=== PATIENT | female | born 1990 | race Caucasian/White ===

== ENCOUNTER → 2019-02-21 | Outpatient (CLI) | payer BC ==
--- NOTE | 2019-02-21 13:48 | Diagnostic Imaging Report ---
INDICATION: survey. TECHNIQUE: Multiple real-time grayscale images were obtained over the gravid uterus. COMPARISON: None. FINDINGS: There is a single live fetus in a cephalic presentation. heart rate was recorded at 150 beats per minute. Placenta is posterior. The amniotic fluid volume is normal. The placental tip is approximately 2.3 cm from the internal cervical os. Cervical length is 5.0 cm. survey demonstrates kidneys, bladder, and stomach to be unremarkable. The brain is unremarkable. There is a four-chamber heart. spine is unremarkable. There is a three-vessel cord. Cord insertion was not well visualized on today's study. Maternal adnexa are unremarkable. Biometrical measurements are as follows: Biparietal 4.68 cm, age 20 weeks 2 days. Head circumference 16.44 cm, age 19 weeks 2 days. Abdominal circumference 13.85 cm, age 19 weeks 2 days. Femur length 3.19 cm, age 20 weeks 0 days. Sonographic estimate age: 19 weeks 5 days. Sonographic estimated date of delivery: 07/13/2019. Estimated Weight: 299 gm (+/- 44 gm). LMP percentile: 44%. heart rate: 150 beats per minute. number: 1 of 1. IMPRESSION: Single live IUP at 19 weeks 5 days gestational age. The estimated date of confinement sonographically is 07/13/2019. survey is unremarkable, although the cord insertion was not well visualized on today's study. In addition, note is made that the tip of the placenta is approximately 2.3 cm from the internal cervical os. Dictated by: Dictated on workstation # [id number]
== END ==
LOC: RAD 11:05
PROVIDERS: ATTEND Obstetrics & Gynecology
DX: Z36.89 Encounter for other specified antenatal screening (principal); Z3A.19 19 weeks gestation of pregnancy
CPT/HCPCS: 76805

== ENCOUNTER 2019-07-11 19:00 | Inpatient (IN) | payer BC ==
[~2019-07-11] VITALS: Ht 160 cm; Wt 106.0 kg
[2019-07-11 19:18] VITALS: BP 133/83
[2019-07-11] MEDS ORDERED: LACTATED RINGERS 1,000 ML IV ONE (19:20)
[2019-07-11] MEDS ORDERED: D5 LR IV SOLUTION 1,000 ML IV ONE (19:20)
[2019-07-11] MEDS ORDERED: NS (IVPB) 250 ML ONE (20:04)
[2019-07-11] MEDS ORDERED: MISOPROSTOL 100 MCG (CYTOTEC) TAB ONE (20:05)
[2019-07-11] MEDS ORDERED: TERBUTALINE INJ 1 MG/ML (BRETHINE) AMP SC PRN (20:15)
[2019-07-11] MEDS ORDERED: MISOPROSTOL 100 MCG (CYTOTEC) TAB PO NR (20:15)
[2019-07-11] MEDS ORDERED: NS (IVPB) 250 ML IV ONE (20:15)
[2019-07-11] MEDS ORDERED: AMPICILLIN FOR IV USE 2,000 MG VIAL ONE (20:19)
[2019-07-11] MEDS ORDERED: WATER (STERILE) FOR INJECTION 20 ML ONE (20:19)
[2019-07-11] MEDS ORDERED: AMPICILLIN FOR IV USE 2,000 MG in WATER (STERILE) FOR INJECTION 14.8 ML IV SCH (20:25)
[2019-07-11] MEDS: D5 LR IV SOLUTION 1,000 ML IV SCH (20:32)
[2019-07-11 20:33] VITALS: BP 129/85
[2019-07-11 20:39] LABS: BASOPHILS % (AUTO) 0 % (0-10); EOSINOPHILS # (AUTO) 0.4 10^3/uL (0.0-0.3); EOSINOPHILS % (AUTO) 3 % (0-10); HEMATOCRIT 37 % (35-52); HEMOGLOBIN 12.6 G/DL (11.5-16.0); LYMPHOCYTES # (AUTO) 2.7 X 10^3 (1.0-4.0); LYMPHOCYTES % (AUTO) 24 % (12-44); MEAN CORPUSCULAR HEMOGLOBIN 29 PG (25-34); MEAN CORPUSCULAR HGB CONC 34 G/DL (32-36); MEAN CORPUSCULAR VOLUME 86 FL (80-99); MEAN PLATELET VOLUME 11.8 FL (7.4-10.4); MONOCYTES # (AUTO) 1.2 X 10^3 (0.0-1.0); MONOCYTES % (AUTO) 11 % (0-12); NEUTROPHILS # (AUTO) 6.7 X 10^3 (1.8-7.8); NEUTROPHILS % (AUTO) 61 % (42-75); PLATELET COUNT 214 10^3/uL (130-400)
[2019-07-11 20:42] LABS: BILIRUBIN,URINE NEGATIVE (NEGATIVE); CLARITY,URINE CLEAR; COLOR,URINE YELLOW; GLUCOSE, URINE (UA) NEGATIVE (NEGATIVE); KETONES,URINE NEGATIVE (NEGATIVE); LEUKOCYTE ESTERASE ,URINE NEGATIVE (NEGATIVE); NITRITE,URINE NEGATIVE (NEGATIVE); PH,URINE 6.5 (5-9); PROTEIN,URINE NEGATIVE (NEGATIVE)
[2019-07-11 20:51] LABS: BACTERIA,URINE NEGATIVE /HPF
[2019-07-11] MEDS ORDERED: CATHETER FLUSH 10 ML SYR IV SCH (22:00)
[2019-07-11 22:01] VITALS: BP 128/81
[2019-07-11 23:01] VITALS: BP 127/81
[2019-07-12] VITALS (32 sets, daily range): BP systolic 87–241; BP diastolic 52–146
[2019-07-12] MEDS ORDERED: HYDROmorphone 2 MG/ML VIAL (DILAUDID) ONE (00:21)
[2019-07-12] MEDS: MISOPROSTOL 100 MCG (CYTOTEC) TAB PO SCH ×2 (00:28→03:16)
[2019-07-12] MEDS ORDERED: HYDROmorphone 2 MG/ML VIAL (DILAUDID) IV ONE (00:30)
[2019-07-12] MEDS ORDERED: AMPICILLIN FOR IV USE 1,000 MG in WATER (STERILE) FOR INJECTION 7.4 ML IV SCH (00:30)
[2019-07-12] MEDS ORDERED: NS IV 1000 ML 1,000 ML ONE (01:23)
[2019-07-12] MEDS ORDERED: SUFENTA 0.6MCG/ML BUPIVA 0.125 100 ML ONE (01:33)
[2019-07-12] MEDS ORDERED: OXYTOCIN/NORMAL SALINE 500 ML IV ONE (01:33)
[2019-07-12] MEDS ORDERED: fentaNYL INJECTION 100 MCG/2 ML AMP ONE (02:01)
[2019-07-12] MEDS ORDERED: LIDOCAINE PF 2% 5 ML (XYLOCAINE) VIAL ONE (02:03)
[2019-07-12] MEDS ORDERED: BUPIVACAINE 0.25% 30 ML (SENSORCAINE) VIAL ONE (02:03)
[2019-07-12] MEDS ORDERED: LACTATED RINGERS 1,000 ML IV SCH (02:38)
[2019-07-12] MEDS ORDERED: diphenhydrAMINE 50 MG/ML INJ (BENADRYL) IV PRN (02:45)
[2019-07-12] MEDS ORDERED: EPIDURAL (SUFENTA 0.6MCG/ML BUPIVA 0.125%) 100 ML BAG EPI PRN (02:45)
[2019-07-12] MEDS ORDERED: ONDANSETRON 4 MG/2 ML (SDV) Z0FRAN IV PRN (02:45)
[2019-07-12] MEDS ORDERED: NALOXONE 0.4 MG/ML 1 ML (NARCAN) VIAL IV PRN (02:45)
[2019-07-12] MEDS ORDERED: NS IV 1000 ML 1,000 ML IV SCH (03:15)
[2019-07-12] MEDS ORDERED: LIDOCAINE/EPI 2% 1:200,00 (XYLOCAINE) 10 ML VIAL ONE (03:24)
[2019-07-12] MEDS: OXYTOCIN/NORMAL SALINE 500 ML IV SCH ×2 (04:21→04:51)
--- NOTE | 2019-07-12 04:37 | History & Physical-OB ---
OB - Chief Complaint & HPI Date/Time Date of Admission: Date of Admission: Jul 11, 2019 at 7:11 pm Date seen by a Provider: Jul 12, 2019 Time Seen by a Provider: 03:30 Chief Complaint/History OB-Reason for Admission/Chief: Induction of Labor Hx : 3 Hx Para: 1 Expected Date of Delivery: Jul 14, 2019 Gestational Age in Weeks: 39 Gestational Age in Days: 4 Other reason for admission: 39 week IUP GDM diet controlled Admission Nurse Assessment Rev: Yes History of Labs GBS pos Allergies and Home Medications Allergies Coded Allergies: No Known Drug Allergies (Unverified , 07/11/19) Patient Home Medication List Home Medication List Reviewed: Yes OB - History Hx of Present Care: Yes Ultrasounds: Normal mid trimester US Obstetrical Complications: Gestational Diabetes Medical Complications: None Patient Past Medical History n/a Social History/Family History Recent Infectious Disease Expo: No Alcohol Use: Denies Use Recreational Drug Use: No Immunizations Date of Influenza Vaccine: May 21, 2019 OB - Admission Exam Physical Exam Vitals: Vital Signs 07/12/19 07/12/19 02:40 02:51 Temp 36.5 Pulse 105 Resp 18 B/P (MAP) 124/63 (83) Pulse Ox 97 O2 Delivery Room Air HEENT: NCAT Heart: Rhythm Normal Lungs: Clear Abdomen: Gravid Extremities: Normal Reflexes: Normal Cervical Dilatation: 2cm Effacement: 75% Station: -1 Membranes: Intact Heart Rate: 130's Accelerations: Accelerations Present Decelerations: No Decelerations Short Term Variability: Present Coremaker Machine Variability: Average (6-25) Contractions on Admission: 6-10 Minutes Apart Intensity: Mild Cox Scoring Tool (Modified) Effacement (%): 51-79% (2) Descent/Station: -1,0 (2) Cervix Consistency: Soft (2) Cervix Position: Anterior (2) Add 1 point for: Each previous vaginal delivery (1) Cox Score: 11 Labs Laboratory Tests Test 07/11/19 19:00 07/11/19 19:50 Range/Units Urine Color YELLOW Urine Clarity CLEAR Urine pH 6.5 5-9 Urine Specific [place] <=1.005 1.016-1.022 Urine Protein NEGATIVE NEGATIVE Urine Glucose (UA) NEGATIVE NEGATIVE Urine Ketones NEGATIVE NEGATIVE Urine Nitrite NEGATIVE NEGATIVE Urine Bilirubin NEGATIVE NEGATIVE Urine Urobilinogen 0.2 < = 1.0 MG/DL Urine Leukocyte Esterase NEGATIVE NEGATIVE Urine RBC (Auto) NEGATIVE NEGATIVE Urine RBC NONE /HPF Urine WBC NONE /HPF Urine Squamous Epithelial Cells 2-5 /HPF Urine Crystals NONE /LPF Urine Bacteria NEGATIVE /HPF Urine Casts NONE /LPF Urine Mucus NEGATIVE /LPF Urine Culture Indicated NO White Blood Count 11.0 4.3-11.0 10^3/uL Red Blood Count 4.29 L 4.35-5.85 10^6/uL Hemoglobin 12.6 11.5-16.0 G/DL Hematocrit 37 35-52 % Mean Corpuscular Volume 86 80-99 FL Mean Corpuscular Hemoglobin 29 25-34 PG Mean Corpuscular Hemoglobin Concent 34 32-36 G/DL Red Cell Distribution Width 14.0 10.0-14.5 % Platelet Count 214 130-400 10^3/uL Mean Platelet Volume 11.8 H 7.4-10.4 FL Neutrophils (%) (Auto) 61 42-75 % Lymphocytes (%) (Auto) 24 12-44 % Monocytes (%) (Auto) 11 0-12 % Eosinophils (%) (Auto) 3 0-10 % Basophils (%) (Auto) 0 0-10 % Neutrophils # (Auto) 6.7 1.8-7.8 X 10^3 Lymphocytes # (Auto) 2.7 1.0-4.0 X 10^3 Monocytes # (Auto) 1.2 H 0.0-1.0 X 10^3 Eosinophils # (Auto) 0.4 H 0.0-0.3 10^3/uL Basophils # (Auto) 0.0 0.0-0.1 10^3/uL Glucose Level 98 70-105 MG/DL OB - Assessment/Plan/Diagnosis Assessment Assessment: induction of labor Admission Dx 29 yo @ 39 weeks GDM- Diet controlled GBS pos Admission Status: Inpatient Order (span 2 midnights) Reason for Inpatient Admission: induction at term Plan Plan: Induction Induction Method: per Misoprostol Protocol LUANN ECHOLS DO Jul 12, 2019 4:37 am
--- NOTE | 2019-07-12 04:40 | OB Labor & Delivery Record ---
L&D History Date of Service Date of Service: Jul 12, 2019 History Expected Date of Delivery: Jul 14, 2019 Gestational Age in Weeks: 39 Hx : 3 Hx Para: 1 Complications Events: Gestational Diabetes, Routine care Operative Indications (Cesarea: N/A-Vaginal Delivery Intrapartal Events: None L&D Stage1 Stage One Onset of Labor - Date: Jul 12, 2019 Monitors and Tracing Monitor Mode: External Heart Rate: 110 Monitor Accelerations: Uniform Monitor Decelerations: Variable Station: -2 Retirement Variability: Average (6-10) Short Term Variability: Present Presentation: Vertex Vital Signs VS - Last 72 Hours, by Label 07/11/19 07/11/19 07/11/19 07/11/19 19:18 20:33 22:01 23:01 Temp 37.0 37.1 Pulse 84 81 75 86 Resp 18 18 18 18 B/P (MAP) 129/85 (100) 128/81 (97) 127/81 (96) Pulse Ox 98 O2 Delivery Room Air Room Air Room Air Room Air 07/12/19 07/12/19 07/12/19 07/12/19 00:00 01:01 02:00 02:17 Temp 36.2 37.2 Pulse 64 80 81 105 Resp 18 18 18 18 B/P (MAP) 131/77 (95) 115/74 (88) 142/93 (109) 149/94 (112) Pulse Ox 99 99 O2 Delivery Room Air Room Air Room Air Room Air 07/12/19 07/12/19 07/12/19 07/12/19 02:20 02:23 02:29 02:33 Pulse 100 105 108 111 Resp 18 18 18 18 B/P (MAP) 178/124 (142) 241/146 (177) 180/90 (120) 152/70 (97) Pulse Ox 99 99 98 98 O2 Delivery Room Air Room Air Room Air Room Air 07/12/19 07/12/19 07/12/19 07/12/19 02:35 02:38 02:40 02:43 Temp 36.5 Pulse 105 114 105 116 Resp 18 18 18 18 B/P (MAP) 200/99 (132) 203/77 (119) 168/75 (106) 140/62 (88) Pulse Ox 98 98 98 98 O2 Delivery Room Air Room Air Room Air Room Air 07/12/19 07/12/19 02:46 02:51 Pulse 106 105 Resp 18 18 B/P (MAP) 124/66 (85) 124/63 (83) Pulse Ox 97 97 O2 Delivery Room Air Room Air Rupture of Membranes Spontaneous Ruture of Membrane: Yes Amniotic Membrane Rupture Time: 00:15 Amniotic Membrane Fluid Desc.: Clear Vaginal Bleeding Description: Normal Show Induction/Anesthesia Epidural Cath Placement - Time: 03:00 Progress/Notes Patient given cytotec po and SROM occured, she continued to contract without further augmentation, became uncomfortable and requested and obtained an epidural, after which she was examined and found to be complete and 0 station L&D Stage2 Stage Two Stage II Date: Jul 12, 2019 Monitors and Tracing Monitor Mode: External Heart Rate: 100 Monitor Accelerations: Uniform Monitor Decelerations: Variable Graphic Arts Technician Variability: Average (6-10) Short Term Variability: Present Position: Right Occiput Anterior Presentation: Vertex Cord Descript/Complications Cord Vessel Description: 3 Vessels Delivery Type Infant Delivery Method: Spontaneous Vaginal Anterior Shoulder: Right Episiotomy/Perineal Laceration Laceraction(s)/Extensions: Yes Episiotomy Description: Right Mediolateral Degree (describe repair) RML repaired using 3-0 and 2-0 vicryl suture Condition of Delivery 1 minute Comment: 9 5 minute Comment: 9 Notes Live male infant weight 7lbs 11 oz Condition of Infant Condition of Infant: Living Exam: No Observed Abnormalities Resuscitation Resuscitation: N/A - Spontaneous Resp L&D Stage3 Stage Three Stage III Date: Jul 12, 2019 Pictocin Pitocin Administration Comment: 30 mu wide open at delivery of placenta Placenta Delivery Placenta Delivery: Spontaneous Delivery Summary Summary Estimated blood loss (mL): 300 Attending at delivery: Luann Echols DO Condition of Delivery Examined: Cervix Examined, Uterus Explored Post Hemorrhage: No Condition of Mother stable Condition of Infant (s) stable LUANN ECHOLS DO Jul 12, 2019 4:40 am
[2019-07-12] MEDS ORDERED: TETANUS,DIPTH,PERTUSS P/F (BOOSTRIX) 0.5 ML VIAL IM ONE (04:45)
[2019-07-12] MEDS ORDERED: WITCH HAZEL(TUCKS) 40 EA JAR TOP PRN (04:45)
[2019-07-12] MEDS ORDERED: BENZOCAINE/MENTHOL (DERMOPLAST) 60 ML CAN TP PRN (04:45)
[2019-07-12] MEDS ORDERED: HYDROcodone/APAP 5 MG/325 MG (LORTAB) TAB PO PRN (04:45)
[2019-07-12] MEDS ORDERED: DIBUCAINE (NUPERCAINAL) 1% OINT 30 GM TOP PRN (04:45)
[2019-07-12] MEDS ORDERED: MEASLES,MUMPS,RUBELLA 1 EA INJ SQ ONE (04:45)
[2019-07-12] MEDS: D5 LR IV SOLUTION 1,000 ML IV SCH (04:54)
[2019-07-12] MEDS ORDERED: CATHETER FLUSH 10 ML SYR IV SCH (06:00)
[2019-07-12] MEDS ORDERED: PRENATAL VITAMIN 1 EA TAB PO SCH (07:00)
[2019-07-12] MEDS: IBUPROFEN 600 MG (MOTRIN) TAB PO SCH ×3 (09:48→21:44)
[2019-07-12] MEDS: FERROUS SULF 325 MG (IRON) TAB PO SCH (09:49)
[2019-07-12] MEDS: DOCUSATE SODIUM 100 MG (COLACE) CAP PO SCH ×2 (09:49→21:44)
--- NOTE | 2019-07-12 13:56 | Anesthesia-Regional Post-Op ---
Regional Patient Condition Mental Status: Alert, Oriented x3 Circulation: Same as Pre-Op Headache: Absent Sensation: Full Recovery Motor Block: Absent Post Op Complications Complications None Follow Up Care/Instructions Patient Instructions None needed. Anesthesia/Patient Condition Patient is doing well, no complaints, stable vital signs, no apparent adverse anesthesia problems. DEYSI WHITT DO Jul 12, 2019 13:56
[2019-07-13] MEDS: IBUPROFEN 600 MG (MOTRIN) TAB PO SCH ×2 (04:05→13:30)
[2019-07-13 04:06] VITALS: BP 115/66
[2019-07-13 05:32] LABS: BASOPHILS % (AUTO) 0 % (0-10); EOSINOPHILS # (AUTO) 0.3 10^3/uL (0.0-0.3); EOSINOPHILS % (AUTO) 3 % (0-10); HEMATOCRIT 28 % (35-52); HEMOGLOBIN 9.5 G/DL (11.5-16.0); LYMPHOCYTES # (AUTO) 3.3 X 10^3 (1.0-4.0); LYMPHOCYTES % (AUTO) 32 % (12-44); MEAN CORPUSCULAR HEMOGLOBIN 29 PG (25-34); MEAN CORPUSCULAR HGB CONC 34 G/DL (32-36); MEAN CORPUSCULAR VOLUME 88 FL (80-99); MEAN PLATELET VOLUME 11.1 FL (7.4-10.4); MONOCYTES % (AUTO) 9 % (0-12); NEUTROPHILS # (AUTO) 5.9 X 10^3 (1.8-7.8); NEUTROPHILS % (AUTO) 56 % (42-75); PLATELET COUNT 153 10^3/uL (130-400); WHITE BLOOD COUNT 10.6 10^3/uL (4.3-11.0)
[2019-07-13] MEDS ORDERED: IBUP-844 PO (07:33)
[2019-07-13] MEDS ORDERED: ACHD5005 PO (07:33)
[2019-07-13] MEDS ORDERED: DOCU-244 PO (07:33)
[2019-07-13] MEDS ORDERED: FERR325T18 PO (07:33)
[2019-07-13] MEDS ORDERED: BENZ78AE2 TP (07:33)
[2019-07-13] MEDS ORDERED: DIBU30OI TOP (07:33)
--- NOTE | 2019-07-13 07:34 | Discharge Inst-Women's Service ---
Discharge Inst-Women's Serv Depart Medication/Instructions New, Converted or Re-Newed RX: RX on Chart Final Diagnosis PPD 1 NVD Problems Reviewed?: Yes Consults/Follow Up Additional Follow Up: Yes Orders/Referrals Dr. Echols in 6 Weeks Activity Activity: Activity as Tolerated Driving Instructions: No Driving for 1 Week NO SMOKING: NO SMOKING Nothing Inside Vagina: No Douching, No Banquete, No Tampons Diet Discharge Diet: No Restrictions Symptoms to Report to : Bleeding Excessive, Pain Increased, Fever Over 101 Degrees F, Vaginal Bleeding Increase, Questions/Concerns For Any Problems or Questions: Contact Your Physician LUANN ECHOLS DO Jul 13, 2019 07:34
--- NOTE | 2019-07-13 07:35 | Postpartum Progress Note ---
Note Note Day # 1 Subjective: Patient is without complaints. Ambulating, voiding. Tolerating a regular diet without nausea or vomiting. Normal lochia. Pain is well controlled with oral pain medications. Objective: Physical Exam: General - Alert and oriented, no apparent distress Abdomen - Soft, appropriately tender to palpation, non-distended, fundus firm at umbilicus Extremities - no edema, negative Loyd's bilaterally Assessment: PPD 1 NVD Acute blood loss anemia Plan: Routine care. Encourage breast feeding. Encourage ambulation. Ferrous sulfate supplementation. Plan for discharge today Vitals - Labs Vital Signs - I&O Vital Signs Date Time Temp Pulse Resp B/P (MAP) Pulse Ox O2 Delivery O2 Flow Rate FiO2 07/13/19 04:06 36.2 75 18 115/66 (82) 97 Room Air 07/12/19 23:52 36.6 80 16 108/52 (70) 97 Room Air 07/12/19 20:00 37.6 107 18 117/69 (85) 99 Room Air 07/12/19 19:53 37.0 81 18 117/75 (89) 98 Room Air 07/12/19 15:43 36.9 93 18 108/59 (75) 98 Room Air 07/12/19 12:30 36.7 83 18 119/58 (78) 98 Room Air 07/12/19 09:47 36.7 101 18 135/75 (95) 98 Room Air Labs Laboratory Tests 07/13/19 05:25: White Blood Count 10.6, Red Blood Count 3.23L, Hemoglobin 9.5#L, Hematocrit 28L, Mean Corpuscular Volume 88, Mean Corpuscular Hemoglobin 29, Mean Corpuscular Hemoglobin Concent 34, Red Cell Distribution Width 14.0, Platelet Count 153, Mean Platelet Volume 11.1H, Neutrophils (%) (Auto) 56, Lymphocytes (%) (Auto) 32, Monocytes (%) (Auto) 9, Eosinophils (%) (Auto) 3, Basophils (%) (Auto) 0, Neutrophils # (Auto) 5.9, Lymphocytes # (Auto) 3.3, Monocytes # (Auto) 1.0, Eosinophils # (Auto) 0.3, Basophils # (Auto) 0.0 LUANN ECHOLS DO Jul 13, 2019 07:35
[2019-07-13] MEDS: FERROUS SULF 325 MG (IRON) TAB PO SCH (08:54)
[2019-07-13] MEDS: DOCUSATE SODIUM 100 MG (COLACE) CAP PO SCH (08:55)
[2019-07-13 09:13] VITALS: BP 131/76
== END 2019-07-13 13:40 | disposition home or self-care (01) | DRG 806 ==
LOC: LDRP 19:11
PROVIDERS: ADMIT Obstetrics & Gynecology; ATTEND Obstetrics & Gynecology
PROC: 10E0XZZ Delivery of Products of Conception, External Approach (ICD-10-PCS; principal; 2019-07-12)
PROC: 3E0P7VZ Introduction of Hormone into Female Reproductive, Via Natural or Artificial Opening (ICD-10-PCS; 2019-07-12)
DX: O24.420 Gestational diabetes mellitus in childbirth, diet controlled (principal); Z37.0 Single live birth; D62 Acute posthemorrhagic anemia; O99.824 Streptococcus B carrier state complicating childbirth; O90.81 Anemia of the puerperium; Z3A.39 39 weeks gestation of pregnancy
CPT/HCPCS: 36415; 81000; 82947; 85025; 86850; 86900; 86901

== ENCOUNTER → 2022-08-26 | Outpatient (CLI) | payer BC ==
[~2022-08-26] MED LIST: ACHD5005 PO; BENZ78AE5 TP; DIBU30OI TOP; DOCU-239 PO; FERR325T18 PO; IBUP-844 PO
== END ==
LOC: LAB FS 17:14
PROVIDERS: ATTEND Obstetrics & Gynecology
DX: O20.9 Hemorrhage in early pregnancy, unspecified (principal); Z3A.00 Weeks of gestation of pregnancy not specified
CPT/HCPCS: 36415; 84702

== ENCOUNTER → 2022-10-06 | Outpatient (CLI) | payer BC ==
[2022-10-06 08:11] LABS: BASOPHILS # (AUTO) 0.1 10^3/uL (0.0-0.1); BASOPHILS % (AUTO) 1 % (0-10); EOSINOPHILS # (AUTO) 0.6 10^3/uL (0.0-0.3); EOSINOPHILS % (AUTO) 7 % (0-10); HEMATOCRIT 42 % (35-52); HEMOGLOBIN 14.8 g/dL (11.5-16.0); LYMPHOCYTES % (AUTO) 34 % (12-44); MEAN CORPUSCULAR HEMOGLOBIN 31 pg (25-34); MEAN CORPUSCULAR HGB CONC 35 g/dL (32-36); MEAN CORPUSCULAR VOLUME 87 fL (80-99); MEAN PLATELET VOLUME 9.9 fL (9.0-12.2); MONOCYTES # (AUTO) 0.8 10^3/uL (0.0-1.0); MONOCYTES % (AUTO) 9 % (0-12); NEUTROPHILS # (AUTO) 4.3 10^3/uL (1.8-7.8); NEUTROPHILS % (AUTO) 49 % (42-75); PLATELET COUNT 273 10^3/uL (130-400); WHITE BLOOD COUNT 8.9 10^3/uL (4.3-11.0)
== END ==
LOC: LAB FS 07:41
PROVIDERS: ATTEND Obstetrics & Gynecology
DX: O02.1 Missed abortion (principal)
CPT/HCPCS: 36415; 84702; 85025

== ENCOUNTER → 2022-10-08 | Outpatient (CLI) | payer BC | LOC: LAB FS 08:00 | PROVIDERS: ATTEND Obstetrics & Gynecology | DX: O02.1 Missed abortion (principal) | CPT/HCPCS: 36415; 84144; 84702 ==

== ENCOUNTER → 2023-01-19 | Outpatient (CLI) | payer BC ==
--- NOTE | 2023-01-19 17:21 | Diagnostic Imaging Report ---
INDICATION: survey. TECHNIQUE: Multiple real-time grayscale images were obtained over the gravid uterus. COMPARISON: None FINDINGS: There is a single live fetus in a cephalic presentation. heart rate was recorded at 144 bpm. The placenta is anterior. The amniotic fluid index is 10.4 cm. survey demonstrates kidneys, bladder and stomach to be unremarkable. brain is unremarkable. There is a four-chamber heart. There is a three-vessel cord with normal insertion. spine is unremarkable. Maternal adnexa was not evaluated. Cervical length is 7.8 cm. Biometrical measurements are as follows: Biparietal 5.03 cm, age 21 weeks 2 days. Head circumference 18.27 cm, age 20 weeks 5 days. Abdominal circumference 15.69 cm, age 20 weeks 6 days. Femur length 3.46 cm, age 21 weeks 0 days. Sonographic estimate age: 21 weeks 0 days. Sonographic estimated date of delivery: 06/01/2023. Estimated Weight: 382 gm (+/- 56 gm). LMP percentile: 77%. heart rate: 144 beats per minute. number: 1 of 1. IMPRESSION: Single live IUP 21 weeks 0 days gestational age. Estimated date of confinement sonographically is 06/01/2023. Dictated by: Dictated on workstation # [id number]
== END ==
LOC: RAD 09:27
PROVIDERS: ATTEND Nurse Practitioner Women's Health
DX: Z34.02 Encounter for supervision of normal first pregnancy, second trimester (principal); Z3A.21 21 weeks gestation of pregnancy
CPT/HCPCS: 76805